=== PATIENT | female | born 2000 | race Caucasian/White ===

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

== ENCOUNTER 2019-08-02 09:20 | Emergency (ER) | payer BC ==
[~2019-08-02] VITALS: Ht 177.8 cm; Wt 59.0 kg
[~2019-08-02 09:20] MED LIST changes: +CEPH-264 PO
[2019-08-02] MEDS ORDERED: DIPH1TAB PO (09:38)
[2019-08-02] MEDS ORDERED: ONDA4TAB12 PO (09:38)
--- NOTE | 2019-08-02 09:38 | PHYS DOC ---
Past History Past Medical History: Bipolar, Depression, Schizophrenia Past Surgical History: No Surgical History Smoking: Non-smoker Alcohol Use: Rarely Drug Use: None, Other Adult General Chief Complaint Chief Complaint: FLU SYMPTOM HPI HPI Patient is a 19-year-old female who presents with complaint of vomiting and diarrhea that started yesterday. Patient states that everyone in the house has had similar symptoms. Patient states that she has been throwing up most of the night. She denies any fever, chest pain or shortness breath. She does admit to a cough and congestion. Patient states that symptoms are worsened if she tries to eat or drink anything.[] Review of Systems Review of Systems Constitutional: Denies fever or chills [] Respiratory: Reports cough without shortness of breath [] Cardiovascular: No additional information not addressed in HPI [] GI: Denies abdominal pain. Complains of nausea with vomiting and diarrhea [] Integument: Denies rash or skin lesions [] Allergies Allergies Allergies Coded Allergies Type Severity Reaction Last Updated Verified No Known Drug Allergies 02/14/15 No Physical Exam Physical Exam Constitutional: Well developed, well nourished, no acute distress, non-toxic appearance. [] Cardiovascular: Regular rate and rhythm[] Lungs & Thorax: Bilateral breath sounds clear to auscultation [] Abdomen: Bowel sounds normal, soft, no tenderness. [] Skin: Warm, dry, no erythema, no rash. [] EKG EKG [] Radiology/Procedures Radiology/Procedures [] Course & Med Decision Making Course & Med Decision Making Pertinent Labs and Imaging studies reviewed. (See chart for details) [] Dragon Disclaimer Dragon Disclaimer This electronic medical record was generated, in whole or in part, using a voice recognition dictation system. Departure Departure: Impression: Primary Impression: Gastroenteritis Disposition: 01 HOME, SELF-CARE Condition: STABLE Referrals: BRAXTON RODGERS (PCP) Patient Instructions: Viral Gastroenteritis Scripts Ondansetron (ONDANSETRON ODT) 4 Mg Tab.rapdis 1 TAB PO PRN Q6-8HRS PRN for NAUSEA, #12 TAB Prov: VANESSA OJEDA Jr. DO 08/02/19 Diphenoxylate Hcl/Atropine (LOMOTIL TABLET) 1 Each Tablet 1 TAB PO TID PRN for DIARRHEA, #15 TAB Prov: VANESSA OJEDA Jr. DO 08/02/19 VANESSA OJEDA Jr. DO Aug 02, 2019 09:38
[2019-08-02] MEDS ORDERED: ONDANSETRON ODT 4 MG TAB.RAPDIS PO ONE (09:45)
[2019-08-02 09:55] VITALS: BP 118/62
== END 2019-08-02 09:50 | disposition home or self-care (01) ==
LOC: ER 09:20
DX: K52.9 Noninfective gastroenteritis and colitis, unspecified (principal); F20.9 Schizophrenia, unspecified; F31.9 Bipolar disorder, unspecified
CPT/HCPCS: 99283; Q0162

== ENCOUNTER 2020-03-02 06:47 | Emergency (ER) | payer BC ==
[~2020-03-02] VITALS: Ht 177.8 cm; Wt 61.0 kg
[~2020-03-02 06:47] MED LIST changes: +DIPH1TAB PO; +ONDA4TAB12 PO
[2020-03-02 06:55] VITALS: BP 118/68
[2020-03-02] MEDS ORDERED: HYDR-3165 PO (07:22)
[2020-03-02] MEDS ORDERED: AMOX1TAB61 PO (07:22)
--- NOTE | 2020-03-02 07:22 | PHYS DOC ---
Past History Past Medical History: No Pertinent History Past Surgical History: No Surgical History Smoking: Non-smoker Alcohol Use: None Drug Use: None Adult General Chief Complaint Chief Complaint: DENTAL PROBLEM HPI HPI Patient is a 19-year-old female who presents with right-sided dental abscess. Patient first noticed this yesterday evening. Area of concern is on right bottom molar. Patient has history of illicit drug abuse and subsequent dental abscesses that has required antibiotics and dental procedures in the past. Patient denies any recent illicit drug abuse, has been clean for several years. Patient denies any fever since onset. Patient reports increase in swelling of right lower jaw, focal fluctuant painful developing abscess that has not drained since onset. She has a call out to her local dentist but wanted to seek emergent care at our ED in the meantime for pain relief and antibiotics Review of Systems Review of Systems Fourteen body systems of review of systems have been reviewed. See HPI for pertinent positives and negative responses, other kahn all other systems are negative, non-pertinent or non-contributory Allergies Allergies Allergies Coded Allergies Type Severity Reaction Last Updated Verified amoxicillin Allergy Intermediate 08/02/19 Yes Physical Exam Physical Exam Constitutional: Well developed, well nourished, mild distress, non-toxic appearance, appears uncomfortable. [] HENT: Normocephalic, atraumatic, bilateral external ears normal, oropharynx moist, no oral exudates, nose normal. Uvula: without deviation or edema. Uvula midline. Soft palate: without swelling Sublingual: normal appearance/no brawny edema or tongue elevation Teeth and gums: No pus expression, tooth fracture appreciated at tooth #31 patient's right lower second molar, periapical swelling and pain around tooth #31 consistent with developing abscess present,no gingival swelling, no active oral bleeding. Tonsils: without pus. [] Eyes: PERRLA, EOMI, conjunctiva normal, no discharge. [] Neck: Normal range of motion, no tenderness, supple, no stridor. [] Cardiovascular:Heart rate regular rhythm, no murmur [] Lungs & Thorax: Bilateral breath sounds clear to auscultation [] Abdomen: Bowel sounds normal, soft, no tenderness, no masses, no pulsatile masses. [] Skin: Warm, dry, no erythema, no rash. [] Back: No tenderness, no CVA tenderness. [] Extremities: No tenderness, no cyanosis, no clubbing, ROM intact, no edema. [] Neurologic: Alert and oriented X 3, normal motor function, normal sensory function, no focal deficits noted. [] Psychologic: Affect normal, judgement normal, mood normal. [] Current Patient Data Vital Signs Vital Signs Date Time Temp Pulse Resp B/P (MAP) Pulse Ox O2 Delivery O2 Flow Rate FiO2 03/02/20 06:55 97.5 73 16 118/68 (85) 97 Room Air EKG EKG [] Radiology/Procedures Radiology/Procedures [] Course & Med Decision Making Course & Med Decision Making Patient seen by myself on immediate ED arrival Hemodynamically stable, history and physical exam grossly non-concerning for acute surgical intervention Presentation consistent with developing dental abscess in an afebrile patient Discussed plan of care regarding pain management, need for antibiotics, and definitive evaluation and treatment from patient's established dentist Patient prescribed the antibiotic Augmentin for dental infection, x1 Mcbain 5 administered in ED with short course prescribed for as needed pain control, patient is pending dental appointment with established dentist Patient's narcotic fill history retrieved, patient has unremarkable fill history, no fills in last 12 months, educated on risks versus benefits of excepting such narcotic medication such as respiratory depression, , and further addiction if used for prolonged duration Patient understood plan of care. All questions and concerns addressed prior to discharge. Strict return precautions discussed at length with good understanding by patient Patient discharged home in stable condition Dragon Disclaimer Dragon Disclaimer This electronic medical record was generated, in whole or in part, using a voice recognition dictation system. Departure Departure: Impression: Primary Impression: Dental abscess Disposition: 01 HOME/RESIDENCE PRIOR TO ADM Condition: STABLE Referrals: BRAXTON RODGERS (PCP) Follow-up to ensure resolution of dental abscess Ensure you call your dentist BENJY to schedule urgent an office appointment for evaluation and further medical care Patient Instructions: Dental Abscess Scripts Amoxicillin/Potassium Clav (AUGMENTIN 875-125 TABLET) 1 Each Tablet 1 TAB PO BID for abscess for 7 Days, #14 TAB 0 Refills Prov: LISBET FELDMAN DO 03/02/20 Hydrocodone Bit/Acetaminophen (NORCO 5-325 TABLET) 1 Each Tablet 1 TAB PO PRN Q6HRS PRN for PAIN, #14 TAB 0 Refills Prov: LISBET FELDMAN DO 03/02/20 Justification of Admission: Justification of Admission: Justification of Admission Dx: N/A LISBET FELDMAN DO Mar 02, 2020 07:22
[2020-03-02] MEDS ORDERED: HYDROcodone/APAP 5/325MG 1 TAB TABLET PO ONE (07:30)
== END 2020-03-02 07:34 | disposition home or self-care (01) ==
LOC: ER 06:47
DX: K04.7 Periapical abscess without sinus (principal); Z88.1 Allergy status to other antibiotic agents
CPT/HCPCS: 99283

== ENCOUNTER 2021-01-13 16:42 | Emergency (ER) | payer BC ==
[~2021-01-13] VITALS: Ht 177.8 cm; Wt 74.0 kg
[~2021-01-13 16:42] MED LIST changes: +AMOX1TAB61 PO; +HYDR-3165 PO
--- NOTE | 2021-01-13 17:28 | PHYS DOC ---
Past History Past Medical History: No Pertinent History, Bipolar, Depression Additional Past Medical Histor: Abruptio placenta Past Surgical History: No Surgical History, Additional Past Surgical Histo: Crash Smoking: Non-smoker Alcohol Use: None Drug Use: None Adult General Chief Complaint Chief Complaint: OB/UTERINE CONTRACTIONS [facility] HPI Patient is a 20-year-old G3, P2 at 34 weeks gestation who presents to the emergency room having a couple episodes of abdominal pain. Patient states that she had a pain across her entire abdomen that lasted a few seconds and then reoccurred about 5 minutes later. She states that this happened while she was at work. She had been lifting things and taking out the trash at work right before this happened. She denies any vaginal bleeding or discharge. She states that baby continues to move is normal. She states that she came here because h shravan saba told her she needed to. Review of Systems Review of Systems Complete ROS is negative unless otherwise documented in [facility] Allergies Allergies Allergies Coded Allergies Type Severity Reaction Last Updated Verified No Known Drug Allergies 03/02/20 No Physical Exam Physical Exam General: Awake, alert, NAD. Well Nourished, well hydrated. Cooperative HEENT: Atraumatic, EOMI, PERRL, airway patent, moist oral mucosa Neck: Supple, trachea midline Respiratory: CTA bilaterally, normal effort, no wheezing/crackles CV: RRR, no murmur, cap refill <2 GI: Soft, gravid abdomen, nontender MSK: No obvious deformities Skin: Warm, dry, intact Neuro: A&O x3, speech NL, sensory and motor grossly intact, no focal deficits Psych: Normal affect, normal mood, not suicidal or homicidal Current Patient Data Vital Signs Vital Signs Date Time Temp Pulse Resp B/P (MAP) Pulse Ox O2 Delivery O2 Flow Rate FiO2 01/13/21 16:49 98.2 110 16 126/82 (97) 98 EKG EKG [] Radiology/Procedures Radiology/Procedures [] Heart Score C/O Chest Pain: N/A Risk Factors: Risk Factors: DM, Current or recent (<one month) smoker, HTN, HLP, family history of CAD, obesity. Risk Scores: Risk Factors: DM, Current or recent (<one month) smoker, HTN, HLP, family history of CAD, obesity. Course & Med Decision Making Course & Med Decision Making Pertinent Labs and Imaging studies reviewed. (See chart for details) Patient is a 20-year-old female who presents to the emergency room after having an episode of belly pain. Patient is currently 34 weeks gestation and has not had any complications with this . She has had a placental abruption previously. She does not currently have any bleeding. I have recommended to her that we transfer her to [facility] where her [facility]. Patient states that she does not want to go there tonight. Have discussed with her that I cannot monitor her baby, determine if she is having contractions, or evaluate her here at [facility]. I have discussed with her that I cannot rule out any kind of complications at this time. Patient states understanding and would like to go home. She has a follow-up appointment with her physician on Wednesday. She did allow us to check urine. Patient has requested to leave AGAINST MEDICAL ADVICE. I have discussed the benefits of staying for a full work up and the patient would like to leave. I discussed the risks of leaving including but not limited to , permenant end-organ damage, worsening of condition and patient stated understanding. Patient signed out against medical advice. Dragon Disclaimer Dragon Disclaimer This electronic medical record was generated, in whole or in part, using a voice recognition dictation system. Departure Departure: Impression: Primary Impression: Abdominal pain during in third trimester Disposition: LEFT AGAINST MEDICAL ADVICE Condition: GUARDED Referrals: BRAXTON RODGERS (PCP) Patient Instructions: Form - Excuse from Work, School, or Physical Activity MAK MOISE MD Jan 13, 2021 17:28
[2021-01-13 17:50] VITALS: BP 101/52
[2021-01-13 18:00] LABS: BILIRUBIN,URINE NEG (NEG); CLARITY,URINE CLEAR; COLOR,URINE YELLOW; GLUCOSE,URINE NEG (NEG); NITRITE,URINE NEG (NEG); UROBILINOGEN,URINE 0.2 mg/dL (0.2 mg/dL)
[2021-01-13 18:01] LABS: BACTERIA,URINE 0 /HPF (0-FEW); RBC,URINE 0 /HPF (0-2); SQUAMOUS EPITHELIAL CELL,UR OCC /LPF; WBC,URINE 0 /HPF (0-4)
== END 2021-01-13 18:05 | disposition left against medical advice (07) ==
LOC: ER 16:42
DX: O26.893 Other specified pregnancy related conditions, third trimester (principal); R10.9 Unspecified abdominal pain; Z3A.34 34 weeks gestation of pregnancy
CPT/HCPCS: 81001; 99283

== ENCOUNTER 2021-03-02 15:33 | Emergency (ER) | payer BC ==
[~2021-03-02] VITALS: Ht 177.8 cm; Wt 74.0 kg
[2021-03-02 15:40] VITALS: BP 134/74
--- NOTE | 2021-03-02 16:11 | PHYS DOC ---
Past History Past Medical History: No Pertinent History, Bipolar, Depression Additional Past Medical Histor: Abruptio placenta Past Surgical History: No Surgical History, Additional Past Surgical Histo: Crash Smoking: Non-smoker Alcohol Use: None Drug Use: None Adult General Chief Complaint Chief Complaint: TEST HPI HPI Patient is a 20-year-old female, G2, P1 at 39 weeks who presents with a chief complaint of contractions. States that they started last night and were about 30 minutes apart and over the course of today have moved more frequently and are now about 3 to 5 minutes apart lasting about a minute each. Denies any traumas, travels, fevers, chest pain, shortness of breath, nausea, vomiting, diarrhea. Denies any leakage of fluid, bleeding or pain. States that she has a superintendent house at [place] and would like to go there to deliver baby but stop by here to make sure she wasn't in labor. Review of Systems Review of Systems Review of systems otherwise unremarkable except noted in HPI Allergies Allergies Allergies Coded Allergies Type Severity Reaction Last Updated Verified No Known Drug Allergies 03/02/20 No Physical Exam Physical Exam Constitutional: Well developed, well nourished, no acute distress, non-toxic appearance. [] HENT: Normocephalic, atraumatic, Eyes: conjunctiva normal, no discharge. [] Neck: Normal range of motion, no tenderness, supple, no stridor. [] Cardiovascular:Heart rate regular rhythm, no murmur [] Lungs & Thorax: Bilateral breath sounds clear to auscultation [] Abdomen: Gravid, movement : No vaginal/labial damage, no bleeding, no obvious fluids, cervical os closed. POC ultrasound showed baby's head was OP and down Skin: Warm, dry, no erythema, no rash. [] Extremities: No tenderness, ROM intact, no edema. [] Neurologic: Alert and oriented X 3, no focal deficits noted. [] Psychologic: Affect normal, judgement normal, mood normal. [] Current Patient Data Vital Signs Vital Signs Date Time Temp Pulse Resp B/P (MAP) Pulse Ox O2 Delivery O2 Flow Rate FiO2 03/02/21 15:40 98.0 100 16 134/74 99 Room Air EKG EKG [] Radiology/Procedures Radiology/Procedures [] Heart Score C/O Chest Pain: No Risk Factors: Risk Factors: DM, Current or recent (<one month) smoker, HTN, HLP, family history of CAD, obesity. Risk Scores: Risk Factors: DM, Current or recent (<one month) smoker, HTN, HLP, family hist ory of CAD, obesity. Course & Med Decision Making Course & Med Decision Making Patient is a 20-year-old female, G2, P1 at 39 weeks who presents with contractions Signs not concerning. Physical exam noted above. No gushes of fluid or vaginal bleeding. Cervical os closed. POC ultrasound with baby's head down and occiput posterior. Patient continued to have what she calls contractions about every 3 to 5 minutes lasting a minute. Called and discussed patient with patient's provider at [place] who recommended having her come over to [place] by private vehicle. Patient and agreed with this plan, and was transferred to [place] emergency department using their own vehicle. Gave strict return precautions to the ED if she were to have any complications on the way. Advised to go straight to the ED because they are waiting for her. [] Dragon Disclaimer Dragon Disclaimer This electronic medical record was generated, in whole or in part, using a voice recognition dictation system. Departure Departure: Impression: Primary Impression: Additional Impression: Uterine contractions at greater than 20 weeks of gestation Disposition: 02 SHORT TERM HOSPITAL Condition: STABLE Referrals: BRAXTON RODGERS (PCP) Additional Instructions: Thank you for coming into the emergency department tonight and allowing us to take care of you. As discussed, your cervical os was closed but you're still having contractions. We talked your provider at [place] who recommended that you come directly there for continued evaluation and treatment. You are taking your own car so please be careful. If you have any issues please return to the emergency department immediately. Please go to the emergency department at [place] where they are waiting for your arrival. Problem Qualifiers ULISES FELIX MD Mar 02, 2021 16:11
== END 2021-03-02 16:20 | disposition short-term general hospital (02) ==
LOC: ER 15:33
DX: O62.8 Other abnormalities of forces of labor (principal); Z3A.39 39 weeks gestation of pregnancy
CPT/HCPCS: 99285-25

== ENCOUNTER 2021-03-17 18:36 | Emergency (ER) | payer BC ==
[~2021-03-17] VITALS: Ht 175.3 cm; Wt 68.8 kg
--- NOTE | 2021-03-17 19:38 | RAD ---
Two-view chest dated 03/17/2021 7:35 PM Comparison: None CLINICAL INDICATION: Cough FINDINGS: PA and lateral views obtained. Heart and mediastinal contours within normal limits. Lungs are clear. No consolidation or pleural effusion. No pneumothorax. IMPRESSION: No acute radiographic abnormality. Electronically signed by: Micah Ritchie MD (03/17/2021 7:35 PM) [facility]
[2021-03-17 20:51] LABS: BASO # 0.1 x10^3/uL (0.0-0.2); BASO % 1 % (0-3); EOS # 0.4 x10^3/uL (0.0-0.7); EOS % 3 % (0-3); HEMATOCRIT 34.1 % (36.0-47.0); HEMOGLOBIN 10.9 g/dL (12.0-15.5); LYMPH # 3.1 x10^3/uL (1.0-4.8); LYMPH % 22 % (24-48); MEAN CORPUSCULAR HEMOGLOBIN 25 pg (25-35); MEAN CORPUSCULAR HGB CONC 32 g/dL (31-37); MEAN CORPUSCULAR VOLUME 77 fL (79-100); MONO # 0.7 x10^3/uL (0.0-1.1); MONO % 5 % (0-9); NEUT # 9.8 x10^3uL (1.8-7.7); NEUT % 69 % (31-73); PLATELET COUNT 414 x10^3/uL (140-400); RED BLOOD COUNT 4.43 x10^6/uL (3.50-5.40); RED CELL DISTRIBUTION WIDTH 21.3 % (11.5-14.5); WHITE BLOOD COUNT 14.2 x10^3/uL (4.0-11.0)
[2021-03-17 21:00] LABS: CALCIUM 8.5 mg/dL (8.5-10.1); CREATININE 0.7 mg/dL (0.6-1.0); GFR 104.6
[2021-03-17 21:14] LABS: PLT ESTIMATE ADEQUATE (ADEQUATE)
[2021-03-17 21:15] LABS: ANISOCYTOSIS MOD
[2021-03-17 21:18] VITALS: BP 130/77
--- NOTE | 2021-03-17 21:20 | PHYS DOC ---
Past History Past Medical History: No Pertinent History, Bipolar, Depression Additional Past Medical Histor: Abruptio placenta Past Surgical History: Additional Past Surgical Histo: Crash Smoking: Non-smoker Alcohol Use: Occasionally Drug Use: None Social History Narrative: PAST METHAMPHETAMINE ABUSE General Adult EDM: Chief Complaint: CHEST PAIN HPI: HPI: Patient is a 20-year-old female who presents with chest pain, cough. Patient reports that she had a on 06 March. States "while I was there something was wrong with my heart, but I am not sure what". "Which is to be seeing a commercial pest control technician in about a week". I have had chest pain off and on since I left the hospital but I have had constant, crampy, chest pressure and pain in my left arm since yesterday. Denies nausea/vomiting/diarrhea, shortness of breath. Denies fever. Review of Systems: Review of Systems: Constitutional: Denies fever or chills Eyes: Denies change in visual acuity HENT: Denies nasal congestion or sore throat Respiratory: Reports cough, denies shortness of breath Cardiovascular: Reports chest pain GI: Denies abdominal pain, nausea, vomiting, bloody stools or diarrhea : Denies dysuria Musculoskeletal: Denies back pain or joint pain Integument: Denies rash Neurologic: Denies headache, focal weakness or sensory changes Endocrine: Denies polyuria or polydipsia Lymphatic: Denies swollen glands Psychiatric: Denies depression or anxiety Allergies: Allergies: Allergies Coded Allergies Type Severity Reaction Last Updated Verified No Known Drug Allergies 03/02/20 No Physical Exam: PE: Constitutional: Well developed, well nourished, no acute distress, non-toxic appearance. [] HENT: Normocephalic, atraumatic, bilateral external ears normal, oropharynx moist, no oral exudates, nose normal. [] Eyes: PERRLA, EOMI, conjunctiva normal, no discharge. [] Neck: Normal range of motion, no tenderness, supple, no stridor. [] Cardiovascular:Heart rate regular rhythm, no murmur [] Lungs & Thorax: Bilateral breath sounds clear to auscultation [] Abdomen: Bowel sounds normal, soft, no tenderness, no masses, no pulsatile masses. [] Skin: Warm, dry, no erythema, no rash. [] Back: No tenderness, no CVA tenderness. [] Extremities: No tenderness, no cyanosis, no clubbing, ROM intact, no edema. [] Neurologic: Alert and oriented X 3, normal motor function, normal sensory function, no focal deficits noted. [] Psychologic: Affect normal, judgement normal, mood normal. [] Current Patient Data: Labs: Laboratory Tests Test 03/17/21 20:35 White Blood Count 14.2 x10^3/uL (4.0-11.0) H Red Blood Count 4.43 x10^6/uL (3.50-5.40) Hemoglobin 10.9 g/dL (12.0-15.5) L Hematocrit 34.1 % (36.0-47.0) L Mean Corpuscular Volume 77 fL (79-100) L Mean Corpuscular Hemoglobin 25 pg (25-35) Mean Corpuscular Hemoglobin Concent 32 g/dL (31-37) Red Cell Distribution Width 21.3 % (11.5-14.5) H Platelet Count 414 x10^3/uL (140-400) H Neutrophils (%) (Auto) 69 % (31-73) Lymphocytes (%) (Auto) 22 % (24-48) L Monocytes (%) (Auto) 5 % (0-9) Eosinophils (%) (Auto) 3 % (0-3) Basophils (%) (Auto) 1 % (0-3) Neutrophils # (Auto) 9.8 x10^3uL (1.8-7.7) H Lymphocytes # (Auto) 3.1 x10^3/uL (1.0-4.8) Monocytes # (Auto) 0.7 x10^3/uL (0.0-1.1) Eosinophils # (Auto) 0.4 x10^3/uL (0.0-0.7) Basophils # (Auto) 0.1 x10^3/uL (0.0-0.2) Platelet Estimate Pending Sodium Level 140 mmol/L (136-145) Potassium Level 4.0 mmol/L (3.5-5.1) Chloride Level 104 mmol/L (98-107) Carbon Dioxide Level 25 mmol/L (21-32) Anion Gap 11 (6-14) Blood Urea Nitrogen 15 mg/dL (7-20) Creatinine 0.7 mg/dL (0.6-1.0) Estimated GFR (Cockcroft-Gault) 104.6 Glucose Level 98 mg/dL (70-99) Calcium Level 8.5 mg/dL (8.5-10.1) Troponin I Quantitative < 0.017 ng/mL (0-0.055) Vital Signs: Vital Signs Date Time Temp Pulse Resp B/P (MAP) Pulse Ox O2 Delivery O2 Flow Rate FiO2 03/17/21 18:40 98.9 91 20 132/84 97 Room Air Radiology/Procedures: Radiology/Procedures: []Two-view chest dated 03/17/2021 7:35 PM Comparison: None CLINICAL INDICATION: Cough FINDINGS: PA and lateral views obtained. Heart and mediastinal contours within normal limits. Lungs are clear. No consolidation or pleural effusion. No pneumothorax. IMPRESSION: No acute radiographic abnormality. Electronically signed by: Micah Ritchie MD (03/17/2021 7:35 PM) [facility] [place] Heart Score: C/O Chest Pain: Yes HEART Score for Chest Pain: HEART Score for Chest Pain Response (Comments) Value History Slighlty/Non-Suspicious 0 ECG Normal 0 Age < 45 0 Risk Factors No Risk Factors 0 Troponin < Normal Limit 0 Total 0 Risk Factors: Risk Factors: DM, Current or recent (<one month) smoker, HTN, HLP, family his tory of CAD, obesity. Risk Scores: Score 0 - 3: 2.5% MACE over next 6 weeks - Discharge Home Score 4 - 6: 20.3% MACE over next 6 weeks - Admit for Clinical Observation Score 7 - 10: 72.7% MACE over next 6 weeks - Early Invasive Strategies Course & Med Decision Making: Course & Med Decision Making Pertinent Labs and Imaging studies reviewed. (See chart for details) [] 20-year-old female presents with chest pain, cough. Patient was just recently in the hospital having a on March 06. Patient states when she was there the doctor was concerned with something in her heart. Patient is unsure what the heart issue was. Patient states that she was referred to a commercial pest control technician which she is going to see next week. Patient states that for the last 2 days she has had constant, crampy chest pain and pain that radiates down her left arm. All labs are unremarkable. Chest x-ray is unremarkable. Troponin is negative. Heart score of 0. Dragon Disclaimer: Dragsavi Disclaimer: This electronic medical record was generated, in whole or in part, using a voice recognition dictation system. Departure Departure: Impression: Primary Impression: Chest pain Qualified Codes: R07.9 - Chest pain, unspecified Disposition: HOME / SELF CARE / HOMELESS Condition: STABLE Referrals: BRAXTON RODGERS (PCP) Patient Instructions: Chest Wall Pain, [id number] Additional Instructions: You were seen in the emergency room for chest pain. All of your labs were unremarkable. Chest x-ray was unremarkable. Make sure that you keep your follow-up appointment with cardiology for next week. I believe that you are having chest wall pain from your cough. Please return to the emergency room if your symptoms worsen. EMERGENCY DEPARTMENT GENERAL DISCHARGE INSTRUCTIONS Thank you for coming to [facility] (ED) today and trusting us with you care. We trust that you had a positivie experience in our Emergency Department. If you wish to speak to the department management, you may call the director at [phone]. YOUR FOLLOW UP INSTRUCTIONS ARE FOLLOWS: 1. Do you have a private Doctor? If you do not have a private doctor, please ask for a resource list of physicians or clinics that may be able to assist you with follow up care. 2. The Emergency Physician has interpreted your x-rays. The X-Ray specialist will also review them. If there is a change in the findings, you will be notified in 48 hours when at all possible. 3. A lab test or culture has been done, your results will be reviewed and you will be notified if you need a change in treatment. ADDITIONAL INSTRUCTIONS AND INFORMATION: 1. Your care today has been supervised by a physician who is specially trained in emergency care. Many problems require more than one evaluation for a complete diagnosis and treatment. We recommend that you schedule your follow up appointment as recommended to ensure complete treatment of you illness or injury. If you are unable to obtain follow up care and continue to have a problem, or if your condition worsens, we recommend that you return to the ED. 2. We are not able to safely determine your condition over the phone nor are we able to give sound medical advice over the phone. For these safety reasons, if you call for medical advice we will ask you to come to the ED for further evaluation. 3. If you have any questions regarding these discharge instructions please call the ED at [phone]. SAFETY INFORMATION: In the interest of safety, wellness, and injury prevention; we encourage you to wear your sealbelt, if you smoke; quite smoking, and we encourage family to use a protective helmet for bicycling and other sporting events that present an increased risk for head injury. IF YOUR SYMPTOMS WORSEN OR NEW SYMPTOMS DEVELOP, OR YOU HAVE CONCERNS ABOUT YOUR CONDITION; OR IF YOUR CONDITION WORSENS WHILE YOU ARE WAITING FOR YOUR FOLLOW UP SUNSHINE OINTMENT; EITHER CONTACT YOUR PRIMARY CARE DOCTOR, THE PHYSICIAN WHOSE NAME AND NUMBER YOU WERE GIVEN, OR RETURN TO THE ED IMMEDIATELY. HECTOR SANTIAGO APRN Mar 17, 2021 21:20
--- NOTE | 2021-03-18 06:29 | EKG ---
[address] [address] Test Date: 2021-03-17 Test Time: 19:09:10 Pat Name: ERUM DHILLON Department: Room: Gender: F [employer] Instructor: : 2000 Requested By: HECTOR SANTIAGO Order Number: [id number] Reading MD: Measurements Intervals [place] Rate: 89 P: 56 WI: 142 QRS: 87 QRSD: 84 T: 48 QT: 366 QTc: 446 Interpretive Statements SINUS RHYTHM NORMAL ECG RI6.02 No previous ECG available for comparison
== END 2021-03-17 21:30 | disposition home or self-care (01) ==
LOC: ER 18:36
DX: R07.89 Other chest pain (principal)
CPT/HCPCS: 36415; 71046; 80048; 84484; 85025; 93005; 99285-25